=== PATIENT | female | born 1965 | race Caucasian/White ===

== ENCOUNTER 2016-12-27 11:49 | Emergency (ER) | payer MEDICAID ==
[~2016-12-27] VITALS: Ht 162.6 cm; Wt 95.0 kg
[~2016-12-27 11:49] MED LIST: LITH150C PO
[2016-12-27 12:25] LABS: HEMOGLOBIN 14.1 g/dL (11.7-16.4); WHITE BLOOD COUNT 10.8 x10^3/uL (3.4-10)
[2016-12-27] MEDS ORDERED: ASPIRIN 81 MG TABLET CHEW PO ONE (12:30)
[2016-12-27 12:38] LABS: BLOOD UREA NITROGEN 13 mg/dL (7-18)
[2016-12-27 12:43] LABS: ASPARTATE AMINO TRANSFERASE 44 U/L (15-37)
[2016-12-27 12:44] LABS: IS PT STATUS REG ER OR PRE ER? YES
[2016-12-27] MEDS ORDERED: QUET400T4 PO (13:23)
[2016-12-27] MEDS ORDERED: LITH600C PO (13:23)
[2016-12-27 13:51] VITALS: BP 163/108
== END 2016-12-27 13:53 | disposition home or self-care (01) ==
LOC: ED 13:48
DX: I10 Essential (primary) hypertension (principal); R06.00 Dyspnea, unspecified; F17.210 Nicotine dependence, cigarettes, uncomplicated; F25.9 Schizoaffective disorder, unspecified
CPT/HCPCS: 36415; 71010; 80053; 83880; 84484; 85025; 93005; 99285

== ENCOUNTER 2017-11-17 16:54 | Emergency (ER) | payer MEDICAID ==
[~2017-11-17] VITALS: Ht 162.6 cm; Wt 114.6 kg
[~2017-11-17 16:54] MED LIST changes: +LITH600C PO; +QUET400T4 PO
[2017-11-17 16:56] VITALS: BP 166/120
[2017-11-17 17:40] LABS: BASOPHILS # (AUTO) 0.03 x10^3/uL (0-0.1); BASOPHILS % (AUTO) 0 % (0-1); EOSINOPHILS # (AUTO) 0.32 x10^3/uL (0-0.4); EOSINOPHILS % (AUTO) 3 % (1-7); LYMPHOCYTES # (AUTO) 1.92 x10^3/uL (1-3.4); LYMPHOCYTES % (AUTO) 16 % (22-44); MD NO; MEAN CORPUSCULAR HGB CONC 33.6 g/dL (32.4-35.8); MEAN CORPUSCULAR VOLUME 89.3 fL (80-100); MEAN PLATELET VOLUME 7.8 fL (7.4-10.4); MONOCYTES # (AUTO) 0.55 x10^3/uL (0.2-0.8); MONOCYTES % (AUTO) 5 % (2-9); NEUTROPHILS # (AUTO) 9.34 x10^3/uL (1.8-6.8); NEUTROPHILS % (AUTO) 77 % (42-75); PLATELET COUNT 362 x10^3/uL (130-400)
[2017-11-17 17:51] LABS: ANION GAP 8 mmol/L (5-15); CALCIUM 9.6 mg/dL (8.5-10.1); CHLORIDE 106 mmol/L (98-107)
== END 2017-11-17 19:07 | disposition home or self-care (01) ==
LOC: ED 18:11
DX: Z04.8 Encounter for examination and observation for other specified reasons (principal); I10 Essential (primary) hypertension; Z85.038 Personal history of other malignant neoplasm of large intestine; Z93.3 Colostomy status; F17.210 Nicotine dependence, cigarettes, uncomplicated
CPT/HCPCS: 36415; 80048; 80178; 82040; 85025; 99284